=== PATIENT | male | born 1960 | race American Indian/Alaskan Native ===

== ENCOUNTER 2017-02-11 09:49 | Outpatient (CLI) | payer BC ==
[2017-02-11] MEDS ORDERED: XYLOCAINE TOPICAL 4% TP ONE (12:00)
== END 2017-02-11 09:50 | disposition home or self-care (01) ==
LOC: WOUND 09:49
PROVIDERS: ATTEND Nurse Practitioner
DX: I87.311 Chronic venous hypertension (idiopathic) with ulcer of right lower extremity (principal); L97.811 Non-pressure chronic ulcer of other part of right lower leg limited to breakdown of skin; Z87.891 Personal history of nicotine dependence

== ENCOUNTER 2017-02-15 08:50 | Day surgery (SDC) | payer BC ==
[~2017-02-15 08:50] MED LIST: ANCEF/STERILE WATER 2 GM/20 ML 2 GM/20 ML SYRINGE IV NR; NACL 0.9% 1000 ML 1,000 ML IV SCH
[2017-02-15 09:51] LABS: Basophils % (Auto) 0.9 % (0.0-1.8); Eosinophils % (Auto) 1.7 % (0.0-4.3); Hematocrit 42.2 % (35.5-45.6); Hemoglobin 14.1 gm/dl (11.8-15.2); Mean Corpuscular HGB Conc 33 % (32-34); Mean Corpuscular Hemoglobin 29 pg (28-32); Mean Corpuscular Volume 85 fl (84-94); Platelet Count 208 K/mm3 (140-440); Red Blood Count 4.95 M/mm3 (3.65-5.03); Red Cell Distribution Width 13.8 % (13.2-15.2); White Blood Count 8.1 K/mm3 (4.5-11.0)
[2017-02-15 10:04] LABS: Anion Gap 18 mmol/L; BUN/Creatinine Ratio 18; Blood Urea Nitrogen 16 mg/dL (9-20); Calcium 8.5 mg/dL (8.4-10.2); Carbon Dioxide 22 mmol/L (22-30); Chloride 106.8 mmol/L (98-107); Glucose 130 mg/dL (75-100); Potassium 3.9 mmol/L (3.6-5.0); Sodium 143 mmol/L (137-145)
[2017-02-15] MEDS ORDERED: HEPARIN 10,000 UNITS/10 ML ONE (10:59)
[2017-02-15] MEDS ORDERED: SUBLIMAZE ONE (10:59)
[2017-02-15] MEDS ORDERED: HEPARIN/NS 5000 UNIT/500ML(CATH LAB) 1,000 ML IR ONE (10:59)
[2017-02-15] MEDS ORDERED: VERSED ONE (10:59)
[2017-02-15] MEDS ORDERED: XYLOCAINE 2% INFILTRATI ONE (10:59)
[2017-02-15] MEDS ORDERED: ANCEF/STERILE WATER 2 GM/20 ML 2 GM/20 ML SYRINGE IV ONE (11:00)
[2017-02-15] MEDS ORDERED: DILAUDID ONE (11:46)
[2017-02-15] MEDS ORDERED: TORADOL ONE (11:47)
--- NOTE | 2017-02-15 12:01 | Short Stay Summary ---
Short Stay Documentation Date of service: 02/15/17 - History Principal diagnosis: Venous insufficiency H&P: obtained from office - Allergies and Medications Current Medications: Allergies No Known Allergies Allergy (Verified 02/15/17 09:39) Home Medications Medication Instructions Recorded Confirmed Last Taken Type Diclofenac Dr [Voltaren Dr] 75 mg PO BID 02/15/17 02/15/17 02/14/17 History 75mg Doxazosin [Cardura] 2 mg PO DAILY 02/15/17 02/15/17 02/15/17 History 2mg Pentoxifylline [Pentoxifylline] 400 mg PO TID 02/15/17 02/15/17 02/14/17 History 400mg Active Medications Cefazolin Sodium (Ancef/Sterile Water 2 Gm/20 Ml) 2 gm in 20 mls @ 80 mls/hr IV PREOP NR PRN Reason: Protocol Stop: 02/15/17 23:00 Last Admin: 02/15/17 11:13 Dose: 20 mls Sodium Chloride (Nacl 0.9% 1000 Ml) 1,000 mls @ 42 mls/hr IV DIRECT TIRSO Last Admin: 02/15/17 09:59 Dose: 42 mls/hr - Brief post op/procedure progress note Date of procedure: 02/15/17 Pre-op diagnosis: Venous insufficiency Post-op diagnosis: same Procedure: Venogram with stent placement Anesthesia: local Surgeon: ALICIA LANDEROS Estimated blood loss: minimal Pathology: none Condition: stable - Disposition Condition at discharge: Good Disposition: DC-01 TO HOME OR SELFCARE Short Stay Discharge Plan Activity: advance as tolerated Weight Bearing Status: Weight Bear as Tolerated Diet: regular Wound: keep clean and dry, per your surgeon's advice Follow up with: DIEGO EATON MD [Primary Care Provider] - 7 Days
--- NOTE | 2017-02-15 12:04 | Operative Report ---
Operative Report Operative Report: EXAM: RIGHT LOWER EXTREMITY VENOGRAM, VENOPLASTY AND STENT PLACEMENT CLINICAL INDICATION: PATIENT WITH A HISTORY OF VENOUS STASIS ULCER OF HIS RIGHT LOWER EXTREMITY DATE: 02/15/2017 PROCEDURE: Following an expiration of the risks, benefits and alternatives; written informed consent was obtained. The patient was brought into graphic suite and placed in prone position on the examination table. Initial ultrasound evaluation of the popliteal vein demonstrated a patent popliteal vein. The patient spell paternal fossa was prepped and draped in the usual sterile fashion. 1% lidocaine was used for anesthesia. Under ultrasound guidance, the popliteal vein was cannulated with a 7 cm 18- gauge needle. A 0.035 guidewire was advanced centrally under fluoroscopy. The needle was removed and a 5 Marshallese sheath placed over the guidewire. Contrast was injected through the sheath which demonstrated mild narrowing of the distal popliteal and superficial femoral vein. More proximally, the vein is widely patent. The central veins are unable to be image from the popliteal sheath. The 5 Marshallese sheath was upsized to a 10 Marshallese sheath and a 7 Marshallese 65 cm sheath placed over the guidewire and advanced into the common femoral vein. Angiography was performed which demonstrates 70% stenosis involving the right external iliac vein. Angioplasty of the vein was performed with persistent residual 70% stenosis therefore a decision was made to place a stent across this lesion. An 18 mm x extend millimeter wall stent was advanced and deployed across the lesion. The stent was seated using a 16 mm balloon. Post an appointment imaging demonstrated satisfactory positioning with no significant tilt. Imaging of the lower leg demonstrates some extravasation of contrast at the sheath insertion site likely accommodation of angulation and short sheath length. The guidewires, catheters and sheaths were removed and hemostasis achieved using manual compression. A compression dressing was then placed. The patient tolerated the procedure well. There were no immediate post procedure complications. Conscious sedation was performed at the guidance of radiologic nursing. Continuous cardiopulmonary monitoring was utilized. IMPRESSION: 1) Right lower cavity venogram with venoplasty and stent placement involving the right external iliac vein.
[2017-02-15 14:03] VITALS: BP 131/81
--- NOTE | 2017-02-16 11:06 | Vascular Lab Report ---
MISCELLANEOUS VESSEL IDENTIFICATION: COMMENTS ON THE SCAN: The right popliteal vein was identified and under real-time ultrasound guidance was cannulated. IMPRESSION: Successful ultrasound guided vein cannulation.
== END 2017-02-15 14:00 | disposition home or self-care (01) ==
LOC: CATHLABREC 08:50
PROVIDERS: ATTEND Radiology Diagnostic Radiology
DX: I87.2 Venous insufficiency (chronic) (peripheral) (principal); I15.9 Secondary hypertension, unspecified; I10 Essential (primary) hypertension; E78.00 Pure hypercholesterolemia, unspecified; Z87.891 Personal history of nicotine dependence; Z90.49 Acquired absence of other specified parts of digestive tract; Z98.890 Other specified postprocedural states; Z86.718 Personal history of other venous thrombosis and embolism; Z79.01 Long term (current) use of anticoagulants; Z80.9 Family history of malignant neoplasm, unspecified
CPT/HCPCS: 36415; 37238; 75820; 76937; 80048; 85025; C1725; C1769; C1876; C1887; C1894; J0690; J1644; J1885; J2250; J3010; J7030; J1170; Q9967

== ENCOUNTER 2017-02-18 09:24 | Outpatient (CLI) | payer BC ==
[2017-02-18] MEDS ORDERED: XYLOCAINE TOPICAL 4% TP ONE (09:45)
== END 2017-02-18 09:25 | disposition home or self-care (01) ==
LOC: WOUND 09:24
PROVIDERS: ATTEND Podiatrist
DX: I87.311 Chronic venous hypertension (idiopathic) with ulcer of right lower extremity (principal); L97.218 Non-pressure chronic ulcer of right calf with other specified severity; L97.812 Non-pressure chronic ulcer of other part of right lower leg with fat layer exposed; Z87.891 Personal history of nicotine dependence

== ENCOUNTER 2017-02-25 09:28 | Outpatient (CLI) | payer BC ==
[2017-02-25] MEDS ORDERED: XYLOCAINE TOPICAL 4% TP ONE ×2 (09:51→09:58)
== END 2017-02-25 09:29 | disposition home or self-care (01) ==
LOC: WOUND 09:28
PROVIDERS: ATTEND Nurse Practitioner
DX: I87.311 Chronic venous hypertension (idiopathic) with ulcer of right lower extremity (principal); L97.812 Non-pressure chronic ulcer of other part of right lower leg with fat layer exposed; L97.211 Non-pressure chronic ulcer of right calf limited to breakdown of skin; B37.2 Candidiasis of skin and nail; Z87.891 Personal history of nicotine dependence

== ENCOUNTER 2017-03-11 09:23 | Outpatient (CLI) | payer BC ==
[2017-03-11] MEDS ORDERED: XYLOCAINE TOPICAL 4% TP ONE (09:43)
== END 2017-03-11 09:24 | disposition home or self-care (01) ==
LOC: WOUND 09:23
PROVIDERS: ATTEND Nurse Practitioner
DX: I87.311 Chronic venous hypertension (idiopathic) with ulcer of right lower extremity (principal); L97.812 Non-pressure chronic ulcer of other part of right lower leg with fat layer exposed; Z87.891 Personal history of nicotine dependence; Z90.49 Acquired absence of other specified parts of digestive tract

== ENCOUNTER 2017-03-18 07:58 | Outpatient (CLI) | payer BC ==
[2017-03-18] MEDS ORDERED: XYLOCAINE TOPICAL 4% TP ONE (08:26)
== END 2017-03-18 07:59 | disposition home or self-care (01) ==
LOC: WOUND 07:58
PROVIDERS: ATTEND Surgery
DX: I87.311 Chronic venous hypertension (idiopathic) with ulcer of right lower extremity (principal); L97.812 Non-pressure chronic ulcer of other part of right lower leg with fat layer exposed; Z90.49 Acquired absence of other specified parts of digestive tract; Z98.62 Peripheral vascular angioplasty status; Z87.891 Personal history of nicotine dependence

== ENCOUNTER 2017-03-25 08:02 | Outpatient (CLI) | payer BC ==
[2017-03-25] MEDS ORDERED: XYLOCAINE TOPICAL 4% TP ONE ×2 (08:19→08:22)
[2017-03-25] MEDS ORDERED: SODIUM CHLORIDE FLUSH SYRINGE 10 ML IV ONE (08:42)
[2017-03-25] MEDS ORDERED: TRIPLE ANTIBIOTIC TP ONE (08:54)
[2017-03-25] MEDS ORDERED: TRIPLE ANTIBIOTIC TP SCH ×2 (14:00)
== END 2017-03-25 08:03 | disposition home or self-care (01) ==
LOC: WOUND 08:02
PROVIDERS: ATTEND Nurse Practitioner
DX: I87.311 Chronic venous hypertension (idiopathic) with ulcer of right lower extremity (principal); L97.212 Non-pressure chronic ulcer of right calf with fat layer exposed; I87.1 Compression of vein; Z90.49 Acquired absence of other specified parts of digestive tract; Z98.62 Peripheral vascular angioplasty status; Z87.891 Personal history of nicotine dependence
CPT/HCPCS: A6250

== ENCOUNTER 2017-03-29 08:02 | Outpatient (CLI) | payer BC | END 2017-03-29 08:03 | disposition home or self-care (01) | LOC: WOUND 08:02 | PROVIDERS: ATTEND Internal Medicine | DX: I87.311 Chronic venous hypertension (idiopathic) with ulcer of right lower extremity (principal); L97.812 Non-pressure chronic ulcer of other part of right lower leg with fat layer exposed; Z87.891 Personal history of nicotine dependence | CPT/HCPCS: 29581; G0463; 99213 ==

== ENCOUNTER 2017-04-01 08:12 | Outpatient (CLI) | payer BC ==
[2017-04-01] MEDS ORDERED: XYLOCAINE TOPICAL 4% TP ONE (08:23)
[2017-04-01] MEDS ORDERED: NACL 0.9% IR PRN (09:19)
[2017-04-01] MEDS ORDERED: SODIUM CHLORIDE FLUSH SYRINGE 10 ML IV NR (09:23)
== END 2017-04-01 08:13 | disposition home or self-care (01) ==
LOC: WOUND 08:12
PROVIDERS: ATTEND Nurse Practitioner
DX: I87.311 Chronic venous hypertension (idiopathic) with ulcer of right lower extremity (principal); L97.812 Non-pressure chronic ulcer of other part of right lower leg with fat layer exposed; I10 Essential (primary) hypertension; Z87.891 Personal history of nicotine dependence; Z90.49 Acquired absence of other specified parts of digestive tract; Z98.62 Peripheral vascular angioplasty status

== ENCOUNTER 2017-04-05 08:00 | Outpatient (CLI) | payer BC | END 2017-04-05 08:01 | disposition home or self-care (01) | LOC: WOUND 08:00 | PROVIDERS: ATTEND Internal Medicine | DX: I87.311 Chronic venous hypertension (idiopathic) with ulcer of right lower extremity (principal); L97.812 Non-pressure chronic ulcer of other part of right lower leg with fat layer exposed; Z87.891 Personal history of nicotine dependence; Z90.49 Acquired absence of other specified parts of digestive tract; Z98.62 Peripheral vascular angioplasty status | CPT/HCPCS: 29580; G0463; 99213 ==

== ENCOUNTER 2017-04-08 08:04 | Outpatient (CLI) | payer BC ==
[2017-04-08] MEDS ORDERED: XYLOCAINE TOPICAL 4% TP ONE (08:28)
== END 2017-04-08 08:05 | disposition home or self-care (01) ==
LOC: WOUND 08:04
PROVIDERS: ATTEND Nurse Practitioner
DX: I87.311 Chronic venous hypertension (idiopathic) with ulcer of right lower extremity (principal); L97.812 Non-pressure chronic ulcer of other part of right lower leg with fat layer exposed; B37.2 Candidiasis of skin and nail; Z87.891 Personal history of nicotine dependence

== ENCOUNTER 2017-04-12 08:01 | Outpatient (CLI) | payer BC | END 2017-04-12 08:02 | disposition home or self-care (01) | LOC: WOUND 08:01 | PROVIDERS: ATTEND Internal Medicine | DX: I87.311 Chronic venous hypertension (idiopathic) with ulcer of right lower extremity (principal); L97.812 Non-pressure chronic ulcer of other part of right lower leg with fat layer exposed; B37.2 Candidiasis of skin and nail; Z87.891 Personal history of nicotine dependence | CPT/HCPCS: 29581; G0463; 99214 ==

== ENCOUNTER 2017-04-15 08:02 | Outpatient (CLI) | payer BC ==
[2017-04-15] MEDS ORDERED: XYLOCAINE TOPICAL 4% TP ONE (08:10)
[2017-04-15] MEDS ORDERED: XYLOCAINE 2% INFILTRATI ONE (09:14)
== END 2017-04-15 08:03 | disposition home or self-care (01) ==
LOC: WOUND 08:02
PROVIDERS: ATTEND Nurse Practitioner
DX: I87.311 Chronic venous hypertension (idiopathic) with ulcer of right lower extremity (principal); L97.812 Non-pressure chronic ulcer of other part of right lower leg with fat layer exposed; B37.2 Candidiasis of skin and nail; Z98.62 Peripheral vascular angioplasty status; Z87.891 Personal history of nicotine dependence
CPT/HCPCS: 87075; 87076; 87116; 87186; 88305

== ENCOUNTER 2017-04-19 08:01 | Outpatient (CLI) | payer BC | END 2017-04-19 08:02 | disposition home or self-care (01) | LOC: WOUND 08:01 | PROVIDERS: ATTEND Internal Medicine | DX: I87.311 Chronic venous hypertension (idiopathic) with ulcer of right lower extremity (principal); L97.812 Non-pressure chronic ulcer of other part of right lower leg with fat layer exposed; B37.2 Candidiasis of skin and nail; Z98.62 Peripheral vascular angioplasty status; Z87.891 Personal history of nicotine dependence; Z90.49 Acquired absence of other specified parts of digestive tract | CPT/HCPCS: 99214; G0463 ==

== ENCOUNTER 2017-04-22 08:00 | Outpatient (CLI) | payer BC ==
[2017-04-22] MEDS ORDERED: XYLOCAINE TOPICAL 4% TP ONE ×2 (08:26→12:44)
== END 2017-04-22 08:01 | disposition home or self-care (01) ==
LOC: WOUND 08:00
PROVIDERS: ATTEND Nurse Practitioner
DX: I87.311 Chronic venous hypertension (idiopathic) with ulcer of right lower extremity (principal); L97.812 Non-pressure chronic ulcer of other part of right lower leg with fat layer exposed; B37.2 Candidiasis of skin and nail; Z87.891 Personal history of nicotine dependence

== ENCOUNTER 2017-04-26 08:02 | Outpatient (CLI) | payer BC | END 2017-04-26 08:03 | disposition home or self-care (01) | LOC: WOUND 08:02 | PROVIDERS: ATTEND Internal Medicine | DX: I87.2 Venous insufficiency (chronic) (peripheral) (principal); L97.811 Non-pressure chronic ulcer of other part of right lower leg limited to breakdown of skin; I10 Essential (primary) hypertension; Z87.891 Personal history of nicotine dependence | CPT/HCPCS: 99213; G0463 ==

== ENCOUNTER 2017-04-29 08:02 | Outpatient (CLI) | payer BC ==
[2017-04-29] MEDS ORDERED: XYLOCAINE TOPICAL 4% TP ONE ×2 (08:09→08:20)
[2017-04-29] MEDS ORDERED: SODIUM CHLORIDE FLUSH SYRINGE 10 ML IV ONE ×2 (08:45→08:48)
== END 2017-04-29 08:03 | disposition home or self-care (01) ==
LOC: WOUND 08:02
PROVIDERS: ATTEND Nurse Practitioner
DX: I87.311 Chronic venous hypertension (idiopathic) with ulcer of right lower extremity (principal); L97.812 Non-pressure chronic ulcer of other part of right lower leg with fat layer exposed; Z87.891 Personal history of nicotine dependence

== ENCOUNTER 2017-05-03 08:01 | Outpatient (CLI) | payer BC ==
[2017-05-03] MEDS ORDERED: SODIUM CHLORIDE FLUSH SYRINGE 10 ML IV ONE (08:19)
== END 2017-05-03 08:02 | disposition home or self-care (01) ==
LOC: WOUND 08:01
PROVIDERS: ATTEND Internal Medicine
DX: I87.311 Chronic venous hypertension (idiopathic) with ulcer of right lower extremity (principal); L97.812 Non-pressure chronic ulcer of other part of right lower leg with fat layer exposed; B37.2 Candidiasis of skin and nail; Z87.891 Personal history of nicotine dependence
CPT/HCPCS: 99213; G0463

== ENCOUNTER 2017-05-06 08:01 | Outpatient (CLI) | payer BC ==
[2017-05-06] MEDS ORDERED: XYLOCAINE TOPICAL 4% TP ONE (08:08)
[2017-05-06] MEDS ORDERED: SODIUM CHLORIDE FLUSH SYRINGE 10 ML IV ONE (08:51)
[2017-05-06] MEDS ORDERED: SODIUM CHLORIDE FLUSH SYRINGE 10 ML IV PRN (08:52)
== END 2017-05-06 08:02 | disposition home or self-care (01) ==
LOC: WOUND 08:01
PROVIDERS: ATTEND Nurse Practitioner
DX: I87.311 Chronic venous hypertension (idiopathic) with ulcer of right lower extremity (principal); L97.218 Non-pressure chronic ulcer of right calf with other specified severity; L97.812 Non-pressure chronic ulcer of other part of right lower leg with fat layer exposed; Z87.891 Personal history of nicotine dependence

== ENCOUNTER 2017-05-10 13:17 | Outpatient (CLI) | payer BC ==
[2017-05-10] MEDS ORDERED: SODIUM CHLORIDE FLUSH SYRINGE 10 ML IV SCH (13:22)
== END 2017-05-10 13:18 | disposition home or self-care (01) ==
LOC: WOUND 13:17
PROVIDERS: ATTEND Internal Medicine
DX: I87.311 Chronic venous hypertension (idiopathic) with ulcer of right lower extremity (principal); L97.218 Non-pressure chronic ulcer of right calf with other specified severity; L97.812 Non-pressure chronic ulcer of other part of right lower leg with fat layer exposed; Z87.891 Personal history of nicotine dependence
CPT/HCPCS: 99213; G0463

== ENCOUNTER 2017-05-13 08:01 | Outpatient (CLI) | payer BC ==
[2017-05-13] MEDS ORDERED: XYLOCAINE TOPICAL 4% TP ONE (08:10)
[2017-05-13] MEDS ORDERED: SODIUM CHLORIDE FLUSH SYRINGE 10 ML IV ONE (09:00)
== END 2017-05-13 08:02 | disposition home or self-care (01) ==
LOC: WOUND 08:01
PROVIDERS: ATTEND Nurse Practitioner
DX: I87.311 Chronic venous hypertension (idiopathic) with ulcer of right lower extremity (principal); L97.218 Non-pressure chronic ulcer of right calf with other specified severity; L97.812 Non-pressure chronic ulcer of other part of right lower leg with fat layer exposed; Z87.891 Personal history of nicotine dependence

== ENCOUNTER 2017-05-17 08:08 | Outpatient (CLI) | payer BC ==
[2017-05-17] MEDS ORDERED: SODIUM CHLORIDE FLUSH SYRINGE 10 ML IV ONE (09:00)
== END 2017-05-17 08:09 | disposition home or self-care (01) ==
LOC: WOUND 08:08
PROVIDERS: ATTEND Internal Medicine
DX: L97.812 Non-pressure chronic ulcer of other part of right lower leg with fat layer exposed (principal); I87.311 Chronic venous hypertension (idiopathic) with ulcer of right lower extremity; B37.2 Candidiasis of skin and nail; Z87.891 Personal history of nicotine dependence
CPT/HCPCS: 99213; G0463

== ENCOUNTER 2017-05-31 08:02 | Outpatient (CLI) | payer BC | END 2017-05-31 08:03 | disposition home or self-care (01) | LOC: WOUND 08:02 | PROVIDERS: ATTEND Internal Medicine | DX: L97.812 Non-pressure chronic ulcer of other part of right lower leg with fat layer exposed (principal); I87.311 Chronic venous hypertension (idiopathic) with ulcer of right lower extremity; B37.2 Candidiasis of skin and nail; I10 Essential (primary) hypertension; Z87.891 Personal history of nicotine dependence | CPT/HCPCS: 99213; G0463 ==

== ENCOUNTER 2017-06-03 08:03 | Outpatient (CLI) | payer BC ==
[2017-06-03] MEDS ORDERED: XYLOCAINE TOPICAL 4% TP ONE (08:17)
[2017-06-03] MEDS ORDERED: SODIUM CHLORIDE FLUSH SYRINGE 10 ML IV ONE (09:28)
== END 2017-06-03 08:04 | disposition home or self-care (01) ==
LOC: WOUND 08:03
PROVIDERS: ATTEND Nurse Practitioner
DX: I87.311 Chronic venous hypertension (idiopathic) with ulcer of right lower extremity (principal); L97.211 Non-pressure chronic ulcer of right calf limited to breakdown of skin; Z87.891 Personal history of nicotine dependence

== ENCOUNTER 2017-06-10 08:19 | Outpatient (CLI) | payer BC ==
[2017-06-10] MEDS ORDERED: XYLOCAINE TOPICAL 4% TP ONE ×2 (08:35→08:39)
[2017-06-10] MEDS ORDERED: SODIUM CHLORIDE FLUSH SYRINGE 10 ML IV NR (09:14)
== END 2017-06-10 08:20 | disposition home or self-care (01) ==
LOC: WOUND 08:19
PROVIDERS: ATTEND Nurse Practitioner
DX: I87.311 Chronic venous hypertension (idiopathic) with ulcer of right lower extremity (principal); L97.211 Non-pressure chronic ulcer of right calf limited to breakdown of skin; Z87.891 Personal history of nicotine dependence

== ENCOUNTER 2017-06-17 08:03 | Outpatient (CLI) | payer BC ==
[2017-06-17] MEDS ORDERED: XYLOCAINE TOPICAL 4% TP ONE (08:21)
[2017-06-17] MEDS ORDERED: SODIUM CHLORIDE FLUSH SYRINGE 10 ML IV ONE (08:50)
== END 2017-06-17 08:04 | disposition home or self-care (01) ==
LOC: WOUND 08:03
PROVIDERS: ATTEND Nurse Practitioner
DX: I87.311 Chronic venous hypertension (idiopathic) with ulcer of right lower extremity (principal); L97.211 Non-pressure chronic ulcer of right calf limited to breakdown of skin; Z87.891 Personal history of nicotine dependence; Z90.49 Acquired absence of other specified parts of digestive tract

== ENCOUNTER 2017-06-24 08:03 | Outpatient (CLI) | payer BC ==
[2017-06-24] MEDS ORDERED: XYLOCAINE TOPICAL 4% TP ONE (08:18)
== END 2017-06-24 08:04 | disposition home or self-care (01) ==
LOC: WOUND 08:03
PROVIDERS: ATTEND Nurse Practitioner
DX: I87.311 Chronic venous hypertension (idiopathic) with ulcer of right lower extremity (principal); L97.211 Non-pressure chronic ulcer of right calf limited to breakdown of skin; Z87.891 Personal history of nicotine dependence; Z90.49 Acquired absence of other specified parts of digestive tract; Z98.62 Peripheral vascular angioplasty status

== ENCOUNTER 2017-07-01 13:30 | Outpatient (CLI) | payer BC ==
[2017-07-01] MEDS ORDERED: XYLOCAINE TOPICAL 4% TP ONE (13:41)
[2017-07-02] MEDS ORDERED: XYLOCAINE TOPICAL 4% TP ONE (15:20)
== END 2017-07-01 13:31 | disposition home or self-care (01) ==
LOC: WOUND 13:30
PROVIDERS: ATTEND Nurse Practitioner
DX: I87.311 Chronic venous hypertension (idiopathic) with ulcer of right lower extremity (principal); L97.212 Non-pressure chronic ulcer of right calf with fat layer exposed; Z87.891 Personal history of nicotine dependence

== ENCOUNTER 2017-07-08 08:17 | Outpatient (CLI) | payer BC ==
[2017-07-08] MEDS ORDERED: XYLOCAINE TOPICAL 4% TP ONE (08:33)
== END 2017-07-08 08:18 | disposition home or self-care (01) ==
LOC: WOUND 08:17
PROVIDERS: ATTEND Nurse Practitioner
DX: I87.311 Chronic venous hypertension (idiopathic) with ulcer of right lower extremity (principal); L97.811 Non-pressure chronic ulcer of other part of right lower leg limited to breakdown of skin; Z87.891 Personal history of nicotine dependence

== ENCOUNTER 2017-07-15 13:06 | Outpatient (CLI) | payer BC ==
[2017-07-15] MEDS ORDERED: XYLOCAINE TOPICAL 4% TP ONE (13:10)
== END 2017-07-15 13:07 | disposition home or self-care (01) ==
LOC: WOUND 13:06
PROVIDERS: ATTEND Nurse Practitioner
DX: I87.311 Chronic venous hypertension (idiopathic) with ulcer of right lower extremity (principal); L97.811 Non-pressure chronic ulcer of other part of right lower leg limited to breakdown of skin; Z87.891 Personal history of nicotine dependence

== ENCOUNTER 2017-07-22 08:32 | Outpatient (CLI) | payer BC ==
[2017-07-22] MEDS ORDERED: XYLOCAINE TOPICAL 4% TP ONE ×2 (08:52→14:00)
== END 2017-07-22 08:33 | disposition home or self-care (01) ==
LOC: WOUND 08:32
PROVIDERS: ATTEND Surgery
DX: I87.311 Chronic venous hypertension (idiopathic) with ulcer of right lower extremity (principal); L97.811 Non-pressure chronic ulcer of other part of right lower leg limited to breakdown of skin; I82.421 Acute embolism and thrombosis of right iliac vein; Z87.891 Personal history of nicotine dependence

== ENCOUNTER 2017-07-29 13:24 | Outpatient (CLI) | payer BC ==
[2017-07-29] MEDS ORDERED: XYLOCAINE TOPICAL 4% TP ONE ×2 (13:46→15:47)
== END 2017-07-29 13:25 | disposition home or self-care (01) ==
LOC: WOUND 13:24
PROVIDERS: ATTEND Nurse Practitioner
DX: I87.311 Chronic venous hypertension (idiopathic) with ulcer of right lower extremity (principal); L97.212 Non-pressure chronic ulcer of right calf with fat layer exposed; I82.421 Acute embolism and thrombosis of right iliac vein; Z87.891 Personal history of nicotine dependence

== ENCOUNTER 2017-08-05 13:04 | Outpatient (CLI) | payer BC ==
[2017-08-05] MEDS ORDERED: XYLOCAINE TOPICAL 4% TP ONE ×5 (13:37→14:18)
[2017-08-05] MEDS ORDERED: SILVER NITRATE TP ONE ×2 (14:19)
== END 2017-08-05 13:05 | disposition home or self-care (01) ==
LOC: WOUND 13:04
PROVIDERS: ATTEND Surgery
DX: I87.311 Chronic venous hypertension (idiopathic) with ulcer of right lower extremity (principal); L97.811 Non-pressure chronic ulcer of other part of right lower leg limited to breakdown of skin; I82.421 Acute embolism and thrombosis of right iliac vein; Z87.891 Personal history of nicotine dependence

== ENCOUNTER 2017-08-12 08:05 | Outpatient (CLI) | payer BC ==
[2017-08-12] MEDS ORDERED: SODIUM CHLORIDE FLUSH SYRINGE 10 ML IV ONE (08:07)
[2017-08-12] MEDS ORDERED: XYLOCAINE TOPICAL 4% TP ONE (08:08)
[2017-08-12] MEDS ORDERED: SILVER NITRATE TP ONE (08:44)
[2017-08-17] MEDS ORDERED: XYLOCAINE TOPICAL 4% TP ONE (14:59)
[2017-08-17] MEDS ORDERED: SILVER NITRATE TP ONE (15:00)
[2017-08-17] MEDS ORDERED: SODIUM CHLORIDE FLUSH SYRINGE 10 ML IV PRN (15:01)
== END 2017-08-12 08:06 | disposition home or self-care (01) ==
LOC: WOUND 08:05
PROVIDERS: ATTEND Surgery
DX: I87.311 Chronic venous hypertension (idiopathic) with ulcer of right lower extremity (principal); L97.811 Non-pressure chronic ulcer of other part of right lower leg limited to breakdown of skin; I82.421 Acute embolism and thrombosis of right iliac vein; Z87.891 Personal history of nicotine dependence
CPT/HCPCS: 15271; Q4158

== ENCOUNTER 2017-08-20 08:14 | Outpatient (CLI) | payer BC ==
[2017-08-20] MEDS ORDERED: XYLOCAINE TOPICAL 4% TP ONE (08:19)
[2017-08-20] MEDS ORDERED: SODIUM CHLORIDE FLUSH SYRINGE 10 ML IV ONE (08:19)
== END 2017-08-20 08:15 | disposition home or self-care (01) ==
LOC: WOUND 08:14
PROVIDERS: ATTEND Surgery
DX: I87.311 Chronic venous hypertension (idiopathic) with ulcer of right lower extremity (principal); L97.811 Non-pressure chronic ulcer of other part of right lower leg limited to breakdown of skin; I82.421 Acute embolism and thrombosis of right iliac vein; Z87.891 Personal history of nicotine dependence
CPT/HCPCS: 29580; 87075; 87076; 87116; 87186

== ENCOUNTER 2017-08-24 13:29 | Outpatient (CLI) | payer BC ==
[2017-08-24] MEDS ORDERED: XYLOCAINE TOPICAL 4% TP ONE ×2 (13:39→13:53)
[2017-08-24] MEDS ORDERED: SODIUM CHLORIDE FLUSH SYRINGE 10 ML IV ONE ×2 (13:55→13:58)
== END 2017-08-24 13:30 | disposition home or self-care (01) ==
LOC: WOUND 13:29
PROVIDERS: ATTEND Surgery
DX: I87.311 Chronic venous hypertension (idiopathic) with ulcer of right lower extremity (principal); L97.811 Non-pressure chronic ulcer of other part of right lower leg limited to breakdown of skin; Z87.891 Personal history of nicotine dependence
CPT/HCPCS: 29580

== ENCOUNTER 2017-08-27 08:39 | Outpatient (CLI) | payer BC ==
[~2017-08-27 08:39] MED LIST changes: -ANCEF/STERILE WATER 2 GM/20 ML 2 GM/20 ML SYRINGE IV NR; -NACL 0.9% 1000 ML 1,000 ML IV SCH; +XYLOCAINE TOPICAL 4% TP ONE
[2017-08-27] MEDS ORDERED: XYLOCAINE TOPICAL 4% TP ONE (08:43)
== END 2017-08-27 08:40 | disposition home or self-care (01) ==
LOC: WOUND 08:39
PROVIDERS: ATTEND Surgery
DX: I87.311 Chronic venous hypertension (idiopathic) with ulcer of right lower extremity (principal); L97.811 Non-pressure chronic ulcer of other part of right lower leg limited to breakdown of skin; Z87.891 Personal history of nicotine dependence
CPT/HCPCS: 29580

== ENCOUNTER 2017-08-31 13:38 | Outpatient (CLI) | payer BC | END 2017-08-31 13:39 | disposition home or self-care (01) | LOC: WOUND 13:38 | PROVIDERS: ATTEND Surgery | DX: I87.311 Chronic venous hypertension (idiopathic) with ulcer of right lower extremity (principal); L97.211 Non-pressure chronic ulcer of right calf limited to breakdown of skin; Z87.891 Personal history of nicotine dependence | CPT/HCPCS: 29580 ==

== ENCOUNTER 2017-09-03 08:10 | Outpatient (CLI) | payer BC ==
[2017-09-03] MEDS ORDERED: XYLOCAINE TOPICAL 4% TP ONE ×2 (08:23→08:37)
== END 2017-09-03 08:11 | disposition home or self-care (01) ==
LOC: WOUND 08:10
PROVIDERS: ATTEND Surgery
DX: I87.311 Chronic venous hypertension (idiopathic) with ulcer of right lower extremity (principal); I82.421 Acute embolism and thrombosis of right iliac vein; L97.811 Non-pressure chronic ulcer of other part of right lower leg limited to breakdown of skin; Z87.891 Personal history of nicotine dependence
CPT/HCPCS: 15271; 15272; 29580; Q4158

== ENCOUNTER 2017-09-07 13:55 | Outpatient (CLI) | payer BC | END 2017-09-07 13:56 | disposition home or self-care (01) | LOC: WOUND 13:55 | PROVIDERS: ATTEND Surgery | DX: I87.311 Chronic venous hypertension (idiopathic) with ulcer of right lower extremity (principal); L97.811 Non-pressure chronic ulcer of other part of right lower leg limited to breakdown of skin; I82.421 Acute embolism and thrombosis of right iliac vein; Z87.891 Personal history of nicotine dependence | CPT/HCPCS: 29580 ==

== ENCOUNTER 2017-09-10 08:20 | Outpatient (CLI) | payer BC ==
[2017-09-10] MEDS ORDERED: XYLOCAINE TOPICAL 4% TP ONE ×2 (08:31→08:51)
== END 2017-09-10 08:21 | disposition home or self-care (01) ==
LOC: WOUND 08:20
PROVIDERS: ATTEND Surgery
DX: I87.311 Chronic venous hypertension (idiopathic) with ulcer of right lower extremity (principal); L97.811 Non-pressure chronic ulcer of other part of right lower leg limited to breakdown of skin; I82.421 Acute embolism and thrombosis of right iliac vein; Z87.891 Personal history of nicotine dependence
CPT/HCPCS: 15271; 15272; 29580; Q4158

== ENCOUNTER 2017-09-13 14:02 | Outpatient (CLI) | payer BC | END 2017-09-13 14:03 | disposition home or self-care (01) | LOC: WOUND 14:02 | PROVIDERS: ATTEND Surgery | DX: I87.311 Chronic venous hypertension (idiopathic) with ulcer of right lower extremity (principal); L97.211 Non-pressure chronic ulcer of right calf limited to breakdown of skin; I82.421 Acute embolism and thrombosis of right iliac vein; Z87.891 Personal history of nicotine dependence | CPT/HCPCS: 29580 ==

== ENCOUNTER 2017-09-17 11:04 | Outpatient (CLI) | payer BC ==
[2017-09-17] MEDS ORDERED: XYLOCAINE TOPICAL 4% TP ONE ×2 (11:20→16:00)
== END 2017-09-17 11:05 | disposition home or self-care (01) ==
LOC: WOUND 11:04
PROVIDERS: ATTEND Surgery
DX: I87.311 Chronic venous hypertension (idiopathic) with ulcer of right lower extremity (principal); L97.811 Non-pressure chronic ulcer of other part of right lower leg limited to breakdown of skin; Z87.891 Personal history of nicotine dependence
CPT/HCPCS: 15271; 15272; Q4158

== ENCOUNTER 2017-09-24 08:08 | Outpatient (CLI) | payer BC ==
[2017-09-24] MEDS ORDERED: XYLOCAINE TOPICAL 4% TP ONE (08:37)
== END 2017-09-24 08:09 | disposition home or self-care (01) ==
LOC: WOUND 08:08
PROVIDERS: ATTEND Surgery
DX: I87.311 Chronic venous hypertension (idiopathic) with ulcer of right lower extremity (principal); L97.811 Non-pressure chronic ulcer of other part of right lower leg limited to breakdown of skin; I82.421 Acute embolism and thrombosis of right iliac vein; Z87.891 Personal history of nicotine dependence
CPT/HCPCS: 29581

== ENCOUNTER 2017-09-28 08:05 | Outpatient (CLI) | payer BC | END 2017-09-28 08:06 | disposition home or self-care (01) | LOC: WOUND 08:05 | PROVIDERS: ATTEND Surgery | DX: I87.311 Chronic venous hypertension (idiopathic) with ulcer of right lower extremity (principal); L97.212 Non-pressure chronic ulcer of right calf with fat layer exposed; I82.421 Acute embolism and thrombosis of right iliac vein; Z87.891 Personal history of nicotine dependence | CPT/HCPCS: 29581 ==

== ENCOUNTER 2017-10-01 08:07 | Outpatient (CLI) | payer BC ==
[2017-10-01] MEDS ORDERED: XYLOCAINE TOPICAL 4% TP ONE (08:13)
[2017-10-01] MEDS ORDERED: SILVER NITRATE TP ONE ×2 (09:03→11:05)
== END 2017-10-01 08:08 | disposition home or self-care (01) ==
LOC: WOUND 08:07
PROVIDERS: ATTEND Surgery
DX: I87.311 Chronic venous hypertension (idiopathic) with ulcer of right lower extremity (principal); L97.212 Non-pressure chronic ulcer of right calf with fat layer exposed; I82.421 Acute embolism and thrombosis of right iliac vein; Z87.891 Personal history of nicotine dependence
CPT/HCPCS: 17250

== ENCOUNTER 2017-10-08 08:04 | Outpatient (CLI) | payer BC ==
[2017-10-08] MEDS ORDERED: XYLOCAINE TOPICAL 4% TP ONE ×2 (08:14→08:35)
[2017-10-08] MEDS ORDERED: SODIUM CHLORIDE FLUSH SYRINGE 10 ML IV ONE ×3 (08:35→10:00)
== END 2017-10-08 08:05 | disposition home or self-care (01) ==
LOC: WOUND 08:04
PROVIDERS: ATTEND Surgery
DX: I87.311 Chronic venous hypertension (idiopathic) with ulcer of right lower extremity (principal); L97.212 Non-pressure chronic ulcer of right calf with fat layer exposed; I82.421 Acute embolism and thrombosis of right iliac vein; Z87.891 Personal history of nicotine dependence
CPT/HCPCS: 15271; 15272; 29581; Q4158

== ENCOUNTER 2017-10-12 08:07 | Outpatient (CLI) | payer BC | END 2017-10-12 08:08 | disposition home or self-care (01) | LOC: WOUND 08:07 | PROVIDERS: ATTEND Surgery | DX: I87.311 Chronic venous hypertension (idiopathic) with ulcer of right lower extremity (principal); L97.212 Non-pressure chronic ulcer of right calf with fat layer exposed; I82.421 Acute embolism and thrombosis of right iliac vein; Z87.891 Personal history of nicotine dependence | CPT/HCPCS: 29581 ==

== ENCOUNTER 2017-10-15 08:11 | Outpatient (CLI) | payer BC ==
[2017-10-15] MEDS ORDERED: XYLOCAINE TOPICAL 4% TP ONE ×2 (08:23→08:48)
== END 2017-10-15 08:12 | disposition home or self-care (01) ==
LOC: WOUND 08:11
PROVIDERS: ATTEND Surgery
DX: I87.311 Chronic venous hypertension (idiopathic) with ulcer of right lower extremity (principal); L97.212 Non-pressure chronic ulcer of right calf with fat layer exposed; I82.421 Acute embolism and thrombosis of right iliac vein; Z87.891 Personal history of nicotine dependence
CPT/HCPCS: 99214; G0463

== ENCOUNTER 2017-10-22 08:04 | Outpatient (CLI) | payer BC ==
[2017-10-22] MEDS ORDERED: XYLOCAINE TOPICAL 4% TP ONE ×2 (08:08→08:24)
== END 2017-10-22 08:05 | disposition home or self-care (01) ==
LOC: WOUND 08:04
PROVIDERS: ATTEND Surgery
DX: I87.311 Chronic venous hypertension (idiopathic) with ulcer of right lower extremity (principal); L97.212 Non-pressure chronic ulcer of right calf with fat layer exposed; I82.421 Acute embolism and thrombosis of right iliac vein; Z87.891 Personal history of nicotine dependence
CPT/HCPCS: 99214; G0463

== ENCOUNTER 2017-10-29 07:49 | Outpatient (CLI) | payer BC ==
[2017-10-29] MEDS ORDERED: XYLOCAINE TOPICAL 4% TP ONE ×2 (07:52→08:14)
== END 2017-10-29 07:50 | disposition home or self-care (01) ==
LOC: WOUND 07:49
PROVIDERS: ATTEND Surgery
DX: I87.311 Chronic venous hypertension (idiopathic) with ulcer of right lower extremity (principal); L97.212 Non-pressure chronic ulcer of right calf with fat layer exposed; I82.421 Acute embolism and thrombosis of right iliac vein; Z87.891 Personal history of nicotine dependence
CPT/HCPCS: 99214; G0463

== ENCOUNTER 2017-11-05 07:48 | Outpatient (CLI) | payer BC ==
[2017-11-05] MEDS ORDERED: XYLOCAINE TOPICAL 4% TP ONE ×2 (08:06→15:33)
== END 2017-11-05 07:49 | disposition home or self-care (01) ==
LOC: WOUND 07:48
PROVIDERS: ATTEND Surgery
DX: I87.311 Chronic venous hypertension (idiopathic) with ulcer of right lower extremity (principal); L97.212 Non-pressure chronic ulcer of right calf with fat layer exposed; I82.421 Acute embolism and thrombosis of right iliac vein; Z87.891 Personal history of nicotine dependence
CPT/HCPCS: 29581

== ENCOUNTER 2017-11-09 11:28 | Outpatient (CLI) | payer BC | END 2017-11-09 11:29 | disposition home or self-care (01) | LOC: WOUND 11:28 | PROVIDERS: ATTEND Surgery | DX: I87.311 Chronic venous hypertension (idiopathic) with ulcer of right lower extremity (principal); L97.212 Non-pressure chronic ulcer of right calf with fat layer exposed; I82.421 Acute embolism and thrombosis of right iliac vein; Z87.891 Personal history of nicotine dependence | CPT/HCPCS: 29581 ==

== ENCOUNTER 2017-11-12 07:45 | Outpatient (CLI) | payer BC ==
[2017-11-12] MEDS ORDERED: XYLOCAINE TOPICAL 4% TP ONE ×2 (08:18→09:12)
[2017-11-12] MEDS ORDERED: SODIUM CHLORIDE FLUSH SYRINGE 10 ML IV ONE ×2 (08:46→09:13)
== END 2017-11-12 07:46 | disposition home or self-care (01) ==
LOC: WOUND 07:45
PROVIDERS: ATTEND Surgery
DX: I87.311 Chronic venous hypertension (idiopathic) with ulcer of right lower extremity (principal); L97.212 Non-pressure chronic ulcer of right calf with fat layer exposed; I82.421 Acute embolism and thrombosis of right iliac vein; Z87.891 Personal history of nicotine dependence
CPT/HCPCS: 15271; 15272; Q4158

== ENCOUNTER 2017-11-19 06:50 | Day surgery (SDC) | payer BC ==
[~2017-11-19 06:50] MED LIST changes: +ANCEF/STERILE WATER 2 GM/20 ML 2 GM/20 ML SYRINGE IV NR; +NACL 0.9% 1000 ML 1,000 ML IV SCH; -XYLOCAINE TOPICAL 4% TP ONE
[2017-11-19 07:59] LABS: Basophils % (Auto) 0.3 % (0.0-1.8); Eosinophils # (Auto) 0.1 K/mm3 (0.0-0.4); Eosinophils % (Auto) 0.6 % (0.0-4.3); Hematocrit 39.9 % (35.5-45.6); Hemoglobin 13.3 gm/dl (11.8-15.2); Lymphocytes # (Auto) 2.1 K/mm3 (1.2-5.4); Lymphocytes % (Auto) 20.7 % (13.4-35.0); Mean Corpuscular HGB Conc 33 % (32-34); Mean Corpuscular Hemoglobin 29 pg (28-32); Mean Corpuscular Volume 88 fl (84-94); Monocytes # (Auto) 0.8 K/mm3 (0.0-0.8); Monocytes % (Auto) 7.4 % (0.0-7.3); Platelet Count 187 K/mm3 (140-440); Red Blood Count 4.56 M/mm3 (3.65-5.03); Red Cell Distribution Width 14.1 % (13.2-15.2)
[2017-11-19 08:09] LABS: INR 1.1 (0.87-1.13)
[2017-11-19 08:10] LABS: Partial Thromboplastin Time 25.1 Sec. (24.2-36.6)
[2017-11-19 08:17] LABS: BUN/Creatinine Ratio 22; Blood Urea Nitrogen 20 mg/dL (9-20); Hemolysis Index 8
--- NOTE | 2017-11-19 09:41 | Anesthesia Day of Surgery ---
Anesthesia Day of Surgery - Day of Surgery Patient Examined: Yes Patient H&P Reviewed: Yes Patient is NPO: Yes
--- NOTE | 2017-11-19 09:42 | Anesthesia Consultation ---
Anesthesia Consult and Med Hx Date of service: 11/19/17 - Airway Anesthetic Teeth Evaluation: Good ROM Head & Neck: Adequate Mental/Hyoid Distance: Adequate Mallampati Class: Class III Intubation Access Assessment: Possibly Difficult - Pulmonary Exam CTA: Yes - Cardiac Exam Cardiac Exam: RRR - Pre-Operative Health Status ASA Pre-Surgery Classification: ASA3 Proposed Anesthetic Plan: MAC (hx of HTN, GERD contolled, Possible MILEY, Denies CAD) - Pulmonary Hx Smoking: Yes COPD: No Hx Pneumonia: Yes (childhood) - Cardiovascular System Hx Hypertension: Yes Hx Peripheral Vascular Disease: Yes - Central Nervous System Hx Psychiatric Problems: No - Endocrine Hx End Stage Renal Disease: No - Other Systems Hx Cancer: No
[2017-11-19] MEDS ORDERED: DIPRIVAN 10 MG/ML IV ONE ×3 (10:17)
[2017-11-19] MEDS ORDERED: VERSED IV ONE (10:17)
[2017-11-19] MEDS ORDERED: SUBLIMAZE ONE (10:18)
[2017-11-19] MEDS ORDERED: XYLOCAINE MPF 2% ONE (10:18)
[2017-11-19] MEDS ORDERED: NACL 0.9% 1000 ML 0 ML ONE (10:30)
[2017-11-19] MEDS ORDERED: HEPARIN 10,000 UNITS/10 ML 5,000 UNIT in NACL 0.9% 500 ML 500 ML IR ONE (10:30)
[2017-11-19] MEDS ORDERED: HEPARIN 10,000 UNITS/10 ML ONE ×2 (11:00→11:51)
[2017-11-19] MEDS ORDERED: HEPARIN/NS 5000 UNIT/500ML(CATH LAB) 1,500 ML IR ONE (11:51)
[2017-11-19] MEDS ORDERED: XYLOCAINE 2% INFILTRATI ONE (11:52)
[2017-11-19] MEDS ORDERED: ANCEF/STERILE WATER 2 GM/20 ML 2 GM/20 ML SYRINGE IV ONE (11:56)
[2017-11-19 13:41] VITALS: BP 129/75
--- NOTE | 2017-11-19 13:59 | Short Stay Summary ---
Short Stay Documentation Date of service: 11/19/17 Narrative H&P: 57-year-old male with nonhealing ulcer of the right lower extremity which is venous in nature with narrowing of the right common iliac vein and right external iliac vein on recent IVC filter removal venography - History Principal diagnosis: Venous compression, nonhealing right vein ulcer, indwelling stent malfuncti H&P: obtained from office - Allergies and Medications Current Medications: Allergies No Known Allergies Allergy (Verified 02/15/17 09:39) Home Medications Medication Instructions Recorded Confirmed Last Taken Type Apixaban [Eliquis] 5 mg PO BID #60 tablet 05/21/17 11/19/17 11/19/17 Rx 5 Pentoxifylline [TRENtal] 400 mg PO TID #90 tablet 05/21/17 11/19/17 11/18/17 Rx 400 Famotidine [Pepcid] 20 mg PO BID 05/24/17 11/19/17 11/18/17 History 20 Gabapentin [Neurontin] 300 mg PO QHS 05/24/17 11/19/17 11/18/17 History 100 Nebivolol HCl [Bystolic] 2.5 mg PO QAM 05/24/17 11/19/17 11/19/17 History 2.5 Finasteride [Proscar] 5 mg PO DAILY 11/19/17 11/19/17 11/18/17 History 5 predniSONE [Prednisone] 25 mg PO DAILY 11/19/17 11/19/17 11/18/17 History 25 Active Medications Cefazolin Sodium (Ancef/Sterile Water 2 Gm/20 Ml) 2 gm in 20 mls @ 80 mls/hr IV PREOP NR; Protocol Stop: 11/19/17 23:55 Last Admin: 11/19/17 10:35 Dose: 20 mls - Physical exam General appearance: no acute distress Lungs: Normal air movement Gastrointestinal: normal Extremities: normal temperature, normal color, abnormal (ulcer of the right lower extremity) - Brief post op/procedure progress note Date of procedure: 11/19/17 Pre-op diagnosis: Venous compression and instent narrowing/thrombus Post-op diagnosis: same Procedure: Thrombectomy of the right lower extremity Venous angioplasty of the right external iliac veins IVUS of the right lower extremity veins Stenting of the right common iliac vein Anesthesia: MAC Surgeon: ALICIA ROSS JESSIE Estimated blood loss: minimal Condition: stable - Hospital course Hospital course: Ready for discharge - Disposition Condition at discharge: Good Disposition: DC-01 TO HOME OR SELFCARE - Discharge Diagnoses (1) Compression of vein Status: Acute (2) Venous ulcer of right leg Status: Acute (3) Iliac DVT (deep venous thrombosis) Status: Acute Short Stay Discharge Plan Activity: advance as tolerated Weight Bearing Status: Weight Bear as Tolerated Diet: advance as tolerated Wound: keep clean and dry Follow up with: DIEGO EATON MD [Primary Care Provider] - 7 Days
--- NOTE | 2017-11-19 14:02 | Operative Report ---
Operative Report Operative Report: EXAM: 1. Ultrasound-guided access of the right common femoral vein. 2. Venography of the right lower extremity. 3. Intravascular ultrasound evaluation of the right common iliac vein, external iliac vein, and common femoral vein. 4. Equipment Mechanic mechanical thrombectomy of the right external iliac vein with subsequent 8 Angolan guide catheter aspiration thrombectomy 5. Stenting of the right common iliac vein with a 14 mm x 80 mm protg stent 6. Angioplasty of the right common iliac vein and external iliac vein with a 14 mm x 40 mm angioplasty balloon 7. Intravascular ultrasound evaluation of the right common iliac vein, external iliac vein, and common femoral vein. DATE: 11/19/17 [employer] DIV[employer] OFFICER: ALICIA ROMAN MD INDICATION: 57-year-old male with nonhealing ulcer of the right calf (venous ulcer) with venous compression and previously placed stent by Dr. Smalls which was complicated by stent thrombosis requiring rescue thrombectomy. Stent was recently evaluated during IVC filter removal demonstrating significant narrowing of the stent and narrowing above the stent. MEDICATIONS: Please see nursing report for full details. DEVICES: Intravascular ultrasound Equipment Mechanic mechanical thrombectomy device 8 Angolan guide catheter 14 mm x 80 mm protg stent 14 mm x 40 mm atlas balloon CONTRAST: Please see Lab report for full details. Provided with pre-procedural hydration and Mucomyst. PROCEDURE: The risks, benefits, and alternatives were discussed with the patient; written informed consent was obtained. The groins are prepped and draped in a sterile fashion. Right common femoral vein was evaluated with ultrasound was patent. Under direct ultrasound guidance, the lowest portion of the right common femoral vein was accessed with a 21-gauge micropuncture needle. 0.018 inch wire was passed through the needle. Needle was exchanged for transitional dilator. Wire was exchanged for 0.035 inch wire. Transitional dilator was exchanged for a 5 Angolan sheath. Digital subtraction angiography was performed demonstrating 50% narrowing of the right external iliac vein stent, and greater than 50% narrowing above the stent into the right common femoral vein. The IVC was patent. The right external iliac vein was selected with a catheter, the right common iliac vein was selected the catheter, and the IVC was selected with a catheter. Intravascular ultrasound was used to evaluate the IVC which was patent, right common iliac vein which was greater than 50% narrowed above the right external iliac vein stent with partial compression from the artery, and the right external iliac vein stent was 75% narrowed by area. The right common femoral vein was patent. Given the appearance of the right external iliac vein narrowing, I determine some of this was thrombus. Equipment Mechanic mechanical thrombectomy device was inserted into the stented section with the small amount of thrombus and mechanical thrombectomy was performed. Repeat intravascular ultrasound demonstrated only 40% narrowing by area after mechanical thrombectomy. 14 mm x 80 mm protg stent was then deployed in the right common iliac vein extending into the right external iliac vein with protrusion into the inferior vena cava. 14 mm x 40 mm angioplasty balloon was used to perform post stent angioplasty of the common iliac vein stent and angioplasty of the right external iliac vein pre -existing stent. Digital subtraction angiography was performed demonstrating prompt flow into the IVC without any residual narrowing of the common iliac vein were external iliac vein. Intravascular ultrasound was used demonstrating patency of the right common iliac vein stent which was fully expanded, and less than 10% residual narrowing of the right external iliac vein stent. Right common femoral vein was patent. All wires, sheaths, and catheters were removed. Pressure was held until hemostasis was achieved. Pressure dressing applied. FINDINGS: Please see procedure note above. IMPRESSION: 1. Successful mechanical thrombectomy of the right external iliac vein. 2. Successful stenting of the right common iliac vein. 3. Successful angioplasty of the right external iliac vein. 4. Successful intravascular ultrasound evaluation of the right common iliac vein, external iliac vein, and common femoral vein with associated selection.
== END 2017-11-19 14:11 | disposition home or self-care (01) ==
LOC: CATHLABREC 06:50
PROVIDERS: ATTEND Radiology Diagnostic Radiology
DX: I87.2 Venous insufficiency (chronic) (peripheral) (principal); I87.311 Chronic venous hypertension (idiopathic) with ulcer of right lower extremity; I87.1 Compression of vein; I70.201 Unspecified atherosclerosis of native arteries of extremities, right leg; E78.00 Pure hypercholesterolemia, unspecified; I10 Essential (primary) hypertension; N40.0 Benign prostatic hyperplasia without lower urinary tract symptoms; K21.9 Gastro-esophageal reflux disease without esophagitis; M19.90 Unspecified osteoarthritis, unspecified site; Z79.01 Long term (current) use of anticoagulants; Z79.899 Other long term (current) drug therapy; Z90.49 Acquired absence of other specified parts of digestive tract; Z87.891 Personal history of nicotine dependence; Z98.890 Other specified postprocedural states; Z80.52 Family history of malignant neoplasm of bladder; Z80.1 Family history of malignant neoplasm of trachea, bronchus and lung; Z80.7 Family history of other malignant neoplasms of lymphoid, hematopoietic and related tissues
CPT/HCPCS: 36415; 37187; 37238; 37252; 75820; 76937; 80048; 85025; 85610; 85730; C1725; C1751; C1753; C1757; C1769; C1876; C1887; C1894; J0690; J1644; J2250; J2704; J3010; J7030; J7040; 37248; Q9967

== ENCOUNTER 2017-11-23 07:45 | Outpatient (CLI) | payer BC ==
[2017-11-23] MEDS ORDERED: XYLOCAINE TOPICAL 4% TP ONE ×2 (08:03→15:47)
== END 2017-11-23 07:46 | disposition home or self-care (01) ==
LOC: WOUND 07:45
PROVIDERS: ATTEND Surgery
DX: I87.311 Chronic venous hypertension (idiopathic) with ulcer of right lower extremity (principal); L97.212 Non-pressure chronic ulcer of right calf with fat layer exposed; I82.421 Acute embolism and thrombosis of right iliac vein; Z87.891 Personal history of nicotine dependence
CPT/HCPCS: 29581

== ENCOUNTER 2017-11-26 07:47 | Outpatient (CLI) | payer BC ==
[2017-11-26] MEDS ORDERED: XYLOCAINE TOPICAL 4% TP ONE ×2 (08:16→08:23)
[2017-11-26] MEDS ORDERED: SODIUM CHLORIDE FLUSH SYRINGE 10 ML IV ONE ×2 (08:28→10:00)
== END 2017-11-26 07:48 | disposition home or self-care (01) ==
LOC: WOUND 07:47
PROVIDERS: ATTEND Surgery
DX: I87.311 Chronic venous hypertension (idiopathic) with ulcer of right lower extremity (principal); L97.212 Non-pressure chronic ulcer of right calf with fat layer exposed; I82.421 Acute embolism and thrombosis of right iliac vein; Z87.891 Personal history of nicotine dependence
CPT/HCPCS: 15271; 15272; 29581; Q4158

== ENCOUNTER 2017-11-30 07:46 | Outpatient (CLI) | payer BC ==
[2017-11-30] MEDS ORDERED: AD OINTMENT TP ONE (08:11)
[2017-11-30] MEDS ORDERED: AD OINTMENT TP PRN (08:39)
== END 2017-11-30 07:47 | disposition home or self-care (01) ==
LOC: WOUND 07:46
PROVIDERS: ATTEND Surgery
DX: I87.311 Chronic venous hypertension (idiopathic) with ulcer of right lower extremity (principal); L97.212 Non-pressure chronic ulcer of right calf with fat layer exposed; I82.421 Acute embolism and thrombosis of right iliac vein; Z87.891 Personal history of nicotine dependence
CPT/HCPCS: 29581; A6250

== ENCOUNTER 2017-12-03 07:46 | Outpatient (CLI) | payer BC ==
[2017-12-03] MEDS ORDERED: SODIUM CHLORIDE FLUSH SYRINGE 10 ML IV ONE ×2 (07:53→08:00)
[2017-12-03] MEDS ORDERED: XYLOCAINE TOPICAL 4% TP ONE ×2 (07:53→08:00)
== END 2017-12-03 07:47 | disposition home or self-care (01) ==
LOC: WOUND 07:46
PROVIDERS: ATTEND Surgery
DX: I87.311 Chronic venous hypertension (idiopathic) with ulcer of right lower extremity (principal); L97.212 Non-pressure chronic ulcer of right calf with fat layer exposed; I82.421 Acute embolism and thrombosis of right iliac vein; Z87.891 Personal history of nicotine dependence
CPT/HCPCS: 15271; 15272; Q4158

== ENCOUNTER 2017-12-07 07:48 | Outpatient (CLI) | payer BC | END 2017-12-07 07:49 | disposition home or self-care (01) | LOC: WOUND 07:48 | PROVIDERS: ATTEND Surgery | DX: I87.311 Chronic venous hypertension (idiopathic) with ulcer of right lower extremity (principal); L97.212 Non-pressure chronic ulcer of right calf with fat layer exposed; I82.421 Acute embolism and thrombosis of right iliac vein; Z87.891 Personal history of nicotine dependence | CPT/HCPCS: 29580 ==

== ENCOUNTER 2017-12-10 07:49 | Outpatient (CLI) | payer BC ==
[2017-12-10] MEDS ORDERED: XYLOCAINE TOPICAL 4% TP ONE ×2 (08:04→08:21)
[2017-12-10] MEDS ORDERED: SODIUM CHLORIDE FLUSH SYRINGE 10 ML IV ONE ×2 (08:05→08:21)
== END 2017-12-10 07:50 | disposition home or self-care (01) ==
LOC: WOUND 07:49
PROVIDERS: ATTEND Surgery
DX: I87.311 Chronic venous hypertension (idiopathic) with ulcer of right lower extremity (principal); L97.212 Non-pressure chronic ulcer of right calf with fat layer exposed; I82.421 Acute embolism and thrombosis of right iliac vein; Z87.891 Personal history of nicotine dependence
CPT/HCPCS: 15271; 15272; Q4158

== ENCOUNTER 2017-12-17 07:46 | Outpatient (CLI) | payer BC ==
[2017-12-17] MEDS ORDERED: XYLOCAINE TOPICAL 4% TP ONE ×2 (07:54→08:21)
[2017-12-17] MEDS ORDERED: SODIUM CHLORIDE FLUSH SYRINGE 10 ML IV ONE (08:04)
== END 2017-12-17 07:47 | disposition home or self-care (01) ==
LOC: WOUND 07:46
PROVIDERS: ATTEND Surgery
DX: I87.311 Chronic venous hypertension (idiopathic) with ulcer of right lower extremity (principal); L97.212 Non-pressure chronic ulcer of right calf with fat layer exposed; I82.421 Acute embolism and thrombosis of right iliac vein; Z87.891 Personal history of nicotine dependence
CPT/HCPCS: 15271; 15272; Q4158

== ENCOUNTER 2017-12-31 07:47 | Outpatient (CLI) | payer BC ==
[2017-12-31] MEDS ORDERED: XYLOCAINE TOPICAL 4% TP ONE ×2 (08:11→10:59)
== END 2017-12-31 07:48 | disposition home or self-care (01) ==
LOC: WOUND 07:47
PROVIDERS: ATTEND Surgery
DX: I87.311 Chronic venous hypertension (idiopathic) with ulcer of right lower extremity (principal); L97.812 Non-pressure chronic ulcer of other part of right lower leg with fat layer exposed; I82.421 Acute embolism and thrombosis of right iliac vein; Z87.891 Personal history of nicotine dependence
CPT/HCPCS: 29581

== ENCOUNTER 2018-01-04 07:47 | Outpatient (CLI) | payer BC | END 2018-01-04 07:48 | disposition home or self-care (01) | LOC: WOUND 07:47 | PROVIDERS: ATTEND Surgery | DX: I87.311 Chronic venous hypertension (idiopathic) with ulcer of right lower extremity (principal); L97.812 Non-pressure chronic ulcer of other part of right lower leg with fat layer exposed; I82.421 Acute embolism and thrombosis of right iliac vein; Z87.891 Personal history of nicotine dependence | CPT/HCPCS: 29581 ==

== ENCOUNTER 2018-03-11 07:50 | Outpatient (CLI) | payer BC ==
[2018-03-11] MEDS ORDERED: XYLOCAINE TOPICAL 4% TP NR (07:54)
== END 2018-03-11 07:51 | disposition home or self-care (01) ==
LOC: WOUND 07:50
PROVIDERS: ATTEND Surgery
DX: I87.311 Chronic venous hypertension (idiopathic) with ulcer of right lower extremity (principal); L97.812 Non-pressure chronic ulcer of other part of right lower leg with fat layer exposed; I87.2 Venous insufficiency (chronic) (peripheral); Z87.891 Personal history of nicotine dependence

== ENCOUNTER 2018-03-18 07:46 | Outpatient (CLI) | payer BC ==
[2018-03-18] MEDS ORDERED: XYLOCAINE TOPICAL 4% TP ONE (08:20)
== END 2018-03-18 07:47 | disposition home or self-care (01) ==
LOC: WOUND 07:46
PROVIDERS: ATTEND Surgery
DX: I87.311 Chronic venous hypertension (idiopathic) with ulcer of right lower extremity (principal); L97.812 Non-pressure chronic ulcer of other part of right lower leg with fat layer exposed; I87.2 Venous insufficiency (chronic) (peripheral); I82.421 Acute embolism and thrombosis of right iliac vein; Z87.891 Personal history of nicotine dependence
CPT/HCPCS: 29581

== ENCOUNTER 2018-03-22 07:46 | Outpatient (CLI) | payer BC | END 2018-03-22 07:47 | disposition home or self-care (01) | LOC: WOUND 07:46 | CPT/HCPCS: 29581 ==

== ENCOUNTER 2018-03-25 07:45 | Outpatient (CLI) | payer BC ==
[2018-03-25] MEDS ORDERED: XYLOCAINE TOPICAL 4% TP ONE (08:15)
== END 2018-03-25 07:46 | disposition home or self-care (01) ==
LOC: WOUND 07:45
PROVIDERS: ATTEND Surgery
DX: I87.311 Chronic venous hypertension (idiopathic) with ulcer of right lower extremity (principal); L97.812 Non-pressure chronic ulcer of other part of right lower leg with fat layer exposed; I82.421 Acute embolism and thrombosis of right iliac vein; Z87.891 Personal history of nicotine dependence
CPT/HCPCS: 29581

== ENCOUNTER 2018-03-29 07:47 | Outpatient (CLI) | payer BC | END 2018-03-29 07:48 | disposition home or self-care (01) | LOC: WOUND 07:47 | PROVIDERS: ATTEND Surgery | DX: I87.311 Chronic venous hypertension (idiopathic) with ulcer of right lower extremity (principal); L97.812 Non-pressure chronic ulcer of other part of right lower leg with fat layer exposed; I82.421 Acute embolism and thrombosis of right iliac vein; Z87.891 Personal history of nicotine dependence | CPT/HCPCS: 29581 ==

== ENCOUNTER 2018-04-01 07:46 | Outpatient (CLI) | payer BC ==
[2018-04-01] MEDS ORDERED: XYLOCAINE TOPICAL 4% TP ONE (07:54)
[2018-04-01] MEDS ORDERED: SILVER NITRATE TP ONE (08:30)
== END 2018-04-01 07:47 | disposition home or self-care (01) ==
LOC: WOUND 07:46
PROVIDERS: ATTEND Surgery
DX: I87.311 Chronic venous hypertension (idiopathic) with ulcer of right lower extremity (principal); L97.812 Non-pressure chronic ulcer of other part of right lower leg with fat layer exposed; I87.2 Venous insufficiency (chronic) (peripheral); I82.421 Acute embolism and thrombosis of right iliac vein; Q87.40 Marfan syndrome, unspecified; Z87.891 Personal history of nicotine dependence
CPT/HCPCS: 29581

== ENCOUNTER 2018-04-05 13:03 | Outpatient (CLI) | payer BC | END 2018-04-05 13:04 | disposition home or self-care (01) | LOC: WOUND 13:03 | CPT/HCPCS: 29581 ==

== ENCOUNTER 2018-04-08 12:16 | Outpatient (CLI) | payer BC | END 2018-04-08 12:17 | disposition home or self-care (01) | LOC: WOUND 12:16 | CPT/HCPCS: 29581 ==

== ENCOUNTER 2018-04-15 12:58 | Outpatient (CLI) | payer BC ==
[2018-04-15] MEDS ORDERED: XYLOCAINE TOPICAL 4% TP ONE (13:23)
[2018-04-16] MEDS ORDERED: AD OINTMENT TP SCH (10:00)
== END 2018-04-15 12:59 | disposition home or self-care (01) ==
LOC: WOUND 12:58
PROVIDERS: ATTEND Surgery
DX: I87.311 Chronic venous hypertension (idiopathic) with ulcer of right lower extremity (principal); L97.812 Non-pressure chronic ulcer of other part of right lower leg with fat layer exposed; I87.2 Venous insufficiency (chronic) (peripheral); I82.421 Acute embolism and thrombosis of right iliac vein; Z87.891 Personal history of nicotine dependence
CPT/HCPCS: 29581

== ENCOUNTER 2018-04-19 12:53 | Outpatient (CLI) | payer BC | END 2018-04-19 12:54 | disposition home or self-care (01) | LOC: WOUND 12:53 | CPT/HCPCS: 29581 ==

== ENCOUNTER 2018-04-22 12:55 | Outpatient (CLI) | payer BC | END 2018-04-22 12:56 | disposition home or self-care (01) | LOC: WOUND 12:55 | CPT/HCPCS: 29580 ==

== ENCOUNTER 2018-04-26 12:52 | Outpatient (CLI) | payer BC | END 2018-04-26 12:53 | disposition home or self-care (01) | LOC: WOUND 12:52 | CPT/HCPCS: 29580 ==

== ENCOUNTER 2018-04-29 13:03 | Outpatient (CLI) | payer BC ==
[2018-04-29] MEDS ORDERED: XYLOCAINE TOPICAL 4% TP ONE (13:23)
== END 2018-04-29 13:04 | disposition home or self-care (01) ==
LOC: WOUND 13:03
PROVIDERS: ATTEND Surgery
DX: I87.311 Chronic venous hypertension (idiopathic) with ulcer of right lower extremity (principal); L97.811 Non-pressure chronic ulcer of other part of right lower leg limited to breakdown of skin; I87.2 Venous insufficiency (chronic) (peripheral); I82.421 Acute embolism and thrombosis of right iliac vein; Z87.891 Personal history of nicotine dependence
CPT/HCPCS: 29580

== ENCOUNTER 2018-05-03 12:56 | Outpatient (CLI) | payer BC | END 2018-05-03 12:57 | disposition home or self-care (01) | LOC: WOUND 12:56 | CPT/HCPCS: 29581 ==

== ENCOUNTER 2018-05-06 12:58 | Outpatient (CLI) | payer BC ==
[2018-05-06] MEDS ORDERED: XYLOCAINE TOPICAL 4% TP NR (13:01)
[2018-05-06] MEDS ORDERED: SILVER NITRATE TP NR (13:02)
[2018-05-06] MEDS ORDERED: AD OINTMENT TP PRN (13:02)
== END 2018-05-06 12:59 | disposition home or self-care (01) ==
LOC: WOUND 12:58
PROVIDERS: ATTEND Surgery
DX: I87.311 Chronic venous hypertension (idiopathic) with ulcer of right lower extremity (principal); L97.212 Non-pressure chronic ulcer of right calf with fat layer exposed; I82.421 Acute embolism and thrombosis of right iliac vein; Z87.891 Personal history of nicotine dependence
CPT/HCPCS: 29581; A6250

== ENCOUNTER 2018-05-10 12:54 | Outpatient (CLI) | payer BC | END 2018-05-10 12:55 | disposition home or self-care (01) | LOC: WOUND 12:54 | CPT/HCPCS: 29581 ==

== ENCOUNTER 2018-05-13 12:50 | Outpatient (CLI) | payer BC ==
[2018-05-13] MEDS ORDERED: XYLOCAINE TOPICAL 4% TP ONE (13:13)
== END 2018-05-13 12:51 | disposition home or self-care (01) ==
LOC: WOUND 12:50
PROVIDERS: ATTEND Surgery
DX: I87.311 Chronic venous hypertension (idiopathic) with ulcer of right lower extremity (principal); L97.212 Non-pressure chronic ulcer of right calf with fat layer exposed; I82.421 Acute embolism and thrombosis of right iliac vein; Z87.891 Personal history of nicotine dependence
CPT/HCPCS: 29581

== ENCOUNTER 2018-05-17 12:55 | Outpatient (CLI) | payer BC | END 2018-05-17 12:56 | disposition home or self-care (01) | LOC: WOUND 12:55 | CPT/HCPCS: 99213; G0463 ==

== ENCOUNTER 2018-05-20 12:55 | Outpatient (CLI) | payer BC ==
[2018-05-20] MEDS ORDERED: XYLOCAINE TOPICAL 4% TP ONE (13:45)
== END 2018-05-20 12:56 | disposition home or self-care (01) ==
LOC: WOUND 12:55
PROVIDERS: ATTEND Surgery
DX: E11.622 Type 2 diabetes mellitus with other skin ulcer (principal); I87.311 Chronic venous hypertension (idiopathic) with ulcer of right lower extremity; L97.211 Non-pressure chronic ulcer of right calf limited to breakdown of skin; I87.2 Venous insufficiency (chronic) (peripheral); I82.421 Acute embolism and thrombosis of right iliac vein; Z87.891 Personal history of nicotine dependence
CPT/HCPCS: 99214; G0463

== ENCOUNTER 2018-05-27 13:25 | Outpatient (CLI) | payer BC | END 2018-05-27 13:26 | disposition home or self-care (01) | LOC: WOUND 13:25 | CPT/HCPCS: 99214; G0463 ==

== ENCOUNTER 2018-06-03 13:04 | Outpatient (CLI) | payer BC ==
[2018-06-03] MEDS ORDERED: XYLOCAINE TOPICAL 4% TP ONE (13:33)
[2018-06-03] MEDS ORDERED: SODIUM CHLORIDE FLUSH SYRINGE 10 ML IV PRN (13:34)
[2018-06-04] MEDS ORDERED: AD OINTMENT TP SCH (10:00)
== END 2018-06-03 13:05 | disposition home or self-care (01) ==
LOC: WOUND 13:04
PROVIDERS: ATTEND Surgery
DX: E11.622 Type 2 diabetes mellitus with other skin ulcer (principal); L97.211 Non-pressure chronic ulcer of right calf limited to breakdown of skin; I87.311 Chronic venous hypertension (idiopathic) with ulcer of right lower extremity; I87.2 Venous insufficiency (chronic) (peripheral); I82.421 Acute embolism and thrombosis of right iliac vein; Z87.891 Personal history of nicotine dependence

== ENCOUNTER 2018-06-10 12:59 | Outpatient (CLI) | payer BC | END 2018-06-10 13:00 | disposition home or self-care (01) | LOC: WOUND 12:59 | PROVIDERS: ATTEND Surgery | DX: I87.311 Chronic venous hypertension (idiopathic) with ulcer of right lower extremity (principal); L97.811 Non-pressure chronic ulcer of other part of right lower leg limited to breakdown of skin; I87.2 Venous insufficiency (chronic) (peripheral); I82.421 Acute embolism and thrombosis of right iliac vein; Z87.891 Personal history of nicotine dependence | CPT/HCPCS: 99213; G0463 ==

== ENCOUNTER 2018-06-17 12:56 | Outpatient (CLI) | payer BC | END 2018-06-17 12:57 | disposition home or self-care (01) | LOC: WOUND 12:56 | PROVIDERS: ATTEND Surgery | DX: I87.311 Chronic venous hypertension (idiopathic) with ulcer of right lower extremity (principal); L97.821 Non-pressure chronic ulcer of other part of left lower leg limited to breakdown of skin; I82.421 Acute embolism and thrombosis of right iliac vein; I87.2 Venous insufficiency (chronic) (peripheral); Z87.891 Personal history of nicotine dependence | CPT/HCPCS: 99214; G0463 ==

== ENCOUNTER 2018-06-24 12:49 | Outpatient (CLI) | payer BC ==
[2018-06-24] MEDS ORDERED: XYLOCAINE TOPICAL 4% TP ONE (13:17)
== END 2018-06-24 12:50 | disposition home or self-care (01) ==
LOC: WOUND 12:49
PROVIDERS: ATTEND Surgery
DX: E11.622 Type 2 diabetes mellitus with other skin ulcer (principal); I87.311 Chronic venous hypertension (idiopathic) with ulcer of right lower extremity; L97.312 Non-pressure chronic ulcer of right ankle with fat layer exposed; I87.2 Venous insufficiency (chronic) (peripheral); I82.421 Acute embolism and thrombosis of right iliac vein; Z87.891 Personal history of nicotine dependence

== ENCOUNTER 2018-07-08 13:00 | Outpatient (CLI) | payer BC | END 2018-07-08 13:01 | disposition home or self-care (01) | LOC: WOUND 13:00 | PROVIDERS: ATTEND Surgery | DX: I87.311 Chronic venous hypertension (idiopathic) with ulcer of right lower extremity (principal); L97.212 Non-pressure chronic ulcer of right calf with fat layer exposed; I87.2 Venous insufficiency (chronic) (peripheral); I82.421 Acute embolism and thrombosis of right iliac vein; Z87.891 Personal history of nicotine dependence ==

== ENCOUNTER 2018-07-15 12:57 | Outpatient (CLI) | payer BC ==
[2018-07-15] MEDS ORDERED: XYLOCAINE TOPICAL 4% TP ONE (13:18)
[2018-07-15] MEDS ORDERED: AD OINTMENT TP SCH (14:00)
== END 2018-07-15 12:58 | disposition home or self-care (01) ==
LOC: WOUND 12:57
PROVIDERS: ATTEND Surgery
DX: I87.311 Chronic venous hypertension (idiopathic) with ulcer of right lower extremity (principal); L97.212 Non-pressure chronic ulcer of right calf with fat layer exposed; I87.2 Venous insufficiency (chronic) (peripheral); I82.421 Acute embolism and thrombosis of right iliac vein; Z87.891 Personal history of nicotine dependence

== ENCOUNTER 2018-07-29 10:54 | Outpatient (CLI) | payer BC | END 2018-07-29 10:55 | disposition home or self-care (01) | LOC: WOUND 10:54 | PROVIDERS: ATTEND Surgery | DX: I87.311 Chronic venous hypertension (idiopathic) with ulcer of right lower extremity (principal); L97.212 Non-pressure chronic ulcer of right calf with fat layer exposed; I87.2 Venous insufficiency (chronic) (peripheral); I82.421 Acute embolism and thrombosis of right iliac vein; Z87.891 Personal history of nicotine dependence | CPT/HCPCS: 99214; G0463 ==

== ENCOUNTER 2018-08-05 12:58 | Outpatient (CLI) | payer BC | END 2018-08-05 12:59 | disposition home or self-care (01) | LOC: WOUND 12:58 | PROVIDERS: ATTEND Surgery | DX: I87.311 Chronic venous hypertension (idiopathic) with ulcer of right lower extremity (principal); L97.211 Non-pressure chronic ulcer of right calf limited to breakdown of skin; I87.2 Venous insufficiency (chronic) (peripheral); I82.421 Acute embolism and thrombosis of right iliac vein; Z87.891 Personal history of nicotine dependence | CPT/HCPCS: 99214; G0463 ==

== ENCOUNTER 2018-08-12 07:59 | Outpatient (CLI) | payer BC | END 2018-08-12 08:00 | disposition home or self-care (01) | LOC: WOUND 07:59 | PROVIDERS: ATTEND Surgery | DX: I87.311 Chronic venous hypertension (idiopathic) with ulcer of right lower extremity (principal); L97.211 Non-pressure chronic ulcer of right calf limited to breakdown of skin; I87.2 Venous insufficiency (chronic) (peripheral); I82.421 Acute embolism and thrombosis of right iliac vein; Z87.891 Personal history of nicotine dependence | CPT/HCPCS: 99214; G0463 ==

== ENCOUNTER 2018-08-19 07:54 | Outpatient (CLI) | payer BC | END 2018-08-19 07:55 | disposition home or self-care (01) | LOC: WOUND 07:54 | PROVIDERS: ATTEND Surgery | DX: I87.311 Chronic venous hypertension (idiopathic) with ulcer of right lower extremity (principal); L97.811 Non-pressure chronic ulcer of other part of right lower leg limited to breakdown of skin; I87.2 Venous insufficiency (chronic) (peripheral); I82.421 Acute embolism and thrombosis of right iliac vein; Z87.891 Personal history of nicotine dependence | CPT/HCPCS: 99215; G0463 ==

== ENCOUNTER 2018-09-02 07:51 | Outpatient (CLI) | payer BC | END 2018-09-02 07:52 | disposition home or self-care (01) | LOC: WOUND 07:51 | PROVIDERS: ATTEND Surgery | DX: I87.311 Chronic venous hypertension (idiopathic) with ulcer of right lower extremity (principal); L97.811 Non-pressure chronic ulcer of other part of right lower leg limited to breakdown of skin; I87.2 Venous insufficiency (chronic) (peripheral); I82.421 Acute embolism and thrombosis of right iliac vein; Z87.891 Personal history of nicotine dependence | CPT/HCPCS: 99214; G0463 ==

== ENCOUNTER 2018-09-23 07:49 | Outpatient (CLI) | payer BC | END 2018-09-23 07:50 | disposition home or self-care (01) | LOC: WOUND 07:49 | PROVIDERS: ATTEND Surgery | DX: I87.311 Chronic venous hypertension (idiopathic) with ulcer of right lower extremity (principal); L97.811 Non-pressure chronic ulcer of other part of right lower leg limited to breakdown of skin; I87.2 Venous insufficiency (chronic) (peripheral); I82.421 Acute embolism and thrombosis of right iliac vein; Z87.891 Personal history of nicotine dependence | CPT/HCPCS: 99214; G0463 ==

== ENCOUNTER 2018-10-14 07:53 | Outpatient (CLI) | payer BC | END 2018-10-14 07:54 | disposition home or self-care (01) | LOC: WOUND 07:53 | PROVIDERS: ATTEND Surgery | DX: I87.311 Chronic venous hypertension (idiopathic) with ulcer of right lower extremity (principal); L97.811 Non-pressure chronic ulcer of other part of right lower leg limited to breakdown of skin; I87.2 Venous insufficiency (chronic) (peripheral); I82.421 Acute embolism and thrombosis of right iliac vein; Z87.891 Personal history of nicotine dependence | CPT/HCPCS: 99214; G0463 ==

== ENCOUNTER 2018-11-11 13:24 | Outpatient (CLI) | payer BC | END 2018-11-11 13:25 | disposition home or self-care (01) | LOC: WOUND 13:24 | PROVIDERS: ATTEND Surgery | DX: I87.311 Chronic venous hypertension (idiopathic) with ulcer of right lower extremity (principal); L97.811 Non-pressure chronic ulcer of other part of right lower leg limited to breakdown of skin; I87.2 Venous insufficiency (chronic) (peripheral); I82.421 Acute embolism and thrombosis of right iliac vein; Z87.891 Personal history of nicotine dependence | CPT/HCPCS: 99213; G0463 ==

== ENCOUNTER 2019-01-06 07:55 | Outpatient (CLI) | payer BC | END 2019-01-06 07:56 | disposition home or self-care (01) | LOC: WOUND 07:55 | PROVIDERS: ATTEND Surgery | DX: I87.311 Chronic venous hypertension (idiopathic) with ulcer of right lower extremity (principal); L97.818 Non-pressure chronic ulcer of other part of right lower leg with other specified severity; I87.2 Venous insufficiency (chronic) (peripheral); I82.421 Acute embolism and thrombosis of right iliac vein; Z87.891 Personal history of nicotine dependence | CPT/HCPCS: 99213; G0463 ==